=== PATIENT | female | born 1990 | race Caucasian/White ===

== ENCOUNTER → 2022-08-20 10:19 | Outpatient (CLI) | payer OTHER, SELFPAY ==
--- NOTE | 2022-08-20 | DI.US.S_ITS ---
PROCEDURE: US OB >= 14 WEEKS FETUS INDICATIONS: 20WK ANATOMY SCAN OUTSIDE/PRIOR DATING DATA: Last menstrual period (LMP): March 21, 2022. LMP-based estimated date of delivery (АЛЕКСАНДР): December 26, 2022. First dating scan (date and location): August 20, 2022. The calculations are made using the clinical АЛЕКСАНДР of December 26, 2022. TECHNIQUE: Real-time scanning was performed of the fetus, with image documentation and biometric measurements. Endovaginal scanning: Not performed COMPARISON: None. FINDINGS: General: A single living intrauterine gestation is present. Presentation: Variable. Placenta: Placental position is anterior , without previa. Lower placental edge 2 cm or less from internal cervical os qualifies as low lying placenta. Amniotic fluid index: 18.4 cm, normal range is 5-24 cm. Single deepest vertical pocket is 5.2 cm. heart rate: 131 beats per minute. Maternal cervical canal: 5.3 cm long. Normal lower limit is 2.5 cm. biometrics: Biparietal diameter: 5.2 cm, 21 weeks and 6 days Head circumference: 19.7 cm, 21 weeks and 6 days Abdominal circumference: 18.1 cm, 23 weeks and 0 days Femur length: 3.6 cm, 21 weeks and 2 days Clinically estimated gestational age: 21 weeks and 5 days Composite gestational age from present scan: 22 weeks and 0 days Estimated weight and percentile: 481 g which places the fetus within the 68th percentile for gestational age. Anatomic survey: Neuro: Ventricles are non-dilated at less than 10 mm. Cisterna magna is normal at 3-11 mm. Cerebellum is normal in size and morphology. Nuchal skin fold: Normal at less than 6 mm between 14-21 weeks gestational age. Face: Nose and lips, facial profile are normal. Spine: No evidence for spina bifida. Heart: 4-chambered heart is present, with normal ventricular outflow tracts. Diaphragm: Diaphragm is intact. Stomach: Left-sided stomach is present. Kidneys: No hydronephrosis. Normal is less than 5 mm in 2nd trimester, less than 7 mm in 3rd trimester. Cord: 3-vessel cord has orthotopic insertion. Bladder: Normal in size. Extremities: All 4 extremities identified. IMPRESSION: Single living intrauterine gestation with estimated sonographic gestational age of approximately 22 weeks and 0 days versus approximately 21 weeks and 5 days based off clinical dating. Normal interval growth has occurred. Estimated weight of approximately 481 g which [address] the fetus within the 68th percentile. Unremarkable second-trimester anatomy screening survey. We strive to produce accurate, complete, and clear reports of imaging services. To assist us in improving patient care, this report was composed using standard report templates and voice recognition software. Therefore, it may contain abnormal punctuation, insertions and/or omissions. Occasional wrong-word or sound-alike substitutions may occur. Though we review the report and make efforts to correct it, we do recommend that the report be read carefully in proper context to recognize any text inaccuracies. Dictated by: Kian Myers M.D. on 08/20/2022 at 14:45 Approved by: Kian Myers M.D. on 08/20/2022 at 14:49
== END ==
PROVIDERS: Referring Provider Nurse Practitioner Obstetrics & Gynecology; Visit Provider Nurse Practitioner Obstetrics & Gynecology
DX: Z36.89 Encounter for other specified antenatal screening (principal); Z3A.22 22 weeks gestation of pregnancy
CPT/HCPCS: 76811